=== PATIENT | male | born 1985 | race Caucasian/White ===

== ENCOUNTER 2019-10-29 11:01 | Emergency (ER) | payer OTHER ==
[~2019-10-29] VITALS: Ht 190.5 cm; Wt 72.6 kg
[2019-10-29 11:12] VITALS: BP 176/113
[2019-10-29] MEDS ORDERED: ALLOPURINOL 10100 M3 PO (11:18)
[2019-10-29] MEDS ORDERED: MEDROLDOSEPACK PO (11:18)
[2019-10-29] MEDS ORDERED: MITIGARE0.6 MG PO (11:18)
== END 2019-10-29 11:34 | disposition home or self-care (01) ==
LOC: M.ERS 11:01
DX: M10.062 Idiopathic gout, left knee (principal); Z76.0 Encounter for issue of repeat prescription; M25.422 Effusion, left elbow; M25.462 Effusion, left knee

== ENCOUNTER 2019-11-16 07:26 | Inpatient (IN) | payer OTHER ==
[~2019-11-16] VITALS: Ht 188 cm; Wt 86.2 kg
[~2019-11-16 07:26] MED LIST: ALLOPURINOL 10100 M3 PO; MEDROLDOSEPACK PO; MITIGARE0.6 MG PO
[2019-11-16 07:28] VITALS: BP 202/114
[2019-11-16 07:57] LABS: URINE BLOOD 3+ (Negative); URINE CLARITY CLEAR; URINE COLOR DARK YELLOW; URINE GLUCOSE-RANDOM NEGATIVE (Negative); URINE KETONES 1+ (Negative); URINE LEUKOCYTES-REFLEX NEGATIVE (Negative); URINE PROTEIN 2+ (Negative); URINE SPECIFIC GRAVITY 1.025 (1.005-1.030)
[2019-11-16 08:01] LABS: ICTOTEST (BILI CONFIRMATORY) Positive (Negative); URINE BILIRUBIN 2+ (Negative); URINE NITRITE-REFLEX POSITIVE (Negative)
[2019-11-16 08:04] LABS: AMP/METHAMP Negative (Negative); BARBITURATES Negative (Negative); BENZODIAZEPINES Negative (Negative); COCAINE Negative (Negative); METHADONE Negative (Negative); OPIATES Negative (Negative); PCP Negative (Negative); THC Negative (Negative)
[2019-11-16 08:06] LABS: SQUAMOUS 0-3 Few /LPF (0-3); URINE WBC-REFLEX 0-5 Rare /HPF (0-5)
[2019-11-16 08:07] LABS: BACTERIA-REFLEX >30 Many /HPF (None Seen); CASTS None Seen /LPF (None Seen); CRYSTALS None Seen /LPF (None Seen); MUCUS 0-3 Light strn/LPF (None Seen); URINE RBC 3-10 Few /HPF (0-2)
[2019-11-16 08:32] LABS: ABSOLUTE BASOPHILS 0.1 thou/uL (0.0-0.2); ABSOLUTE NEUTROPHILS 8.2 thou/uL (1.6-8.1); BASOPHILS 0.8 %; HEMATOCRIT 36.7 % (42.0-52.0); HEMOGLOBIN 13.5 gm/dL (14.0-18.0); LYMPHOCYTES 9.5 %; MCH 36.2 pg (26.0-34.0); MCHC 36.7 g/dL (28.0-37.0); MCV 98.5 fL (80.0-100.0); MONOCYTES 9.4 %; MPV 7.7 fl. (7.2-11.1); NUCLEATED RBCS 0 /100WBC; PLATELET COUNT* 146 thou/uL (150-400); POLYS 80.3 %; RBC 3.72 mil/uL (4.50-6.00); RDW-CV 15.8 % (10.5-14.5); WBC 10.2 thou/uL (4.0-11.0)
[2019-11-16 08:39] LABS: CREATININE 0.7 mg/dL (0.6-1.3)
[2019-11-16 08:44] LABS: ALBUMIN 2.4 g/dL (3.4-5.0); TOTAL BILIRUBIN 1.9 mg/dL (<0.1-1.0); TOTAL PROTEIN 6.6 g/dL (6.4-8.2)
[2019-11-16 10:19] VITALS: BP 181/106
[2019-11-16 11:00] VITALS: BP 160/102
[2019-11-16] MEDS ORDERED: NORVASC 2.5 MG2.5 M1 PO (11:32)
--- NOTE | 2019-11-16 14:11 | NUR ---
PT ADMITTED TO ROOM 225 VIA CART FROM ED AT APPROX 1027, REPORT RECEIVED FROM KORTNEY DIEHL. PT STATES HE HAS BEEN LIVING IN HIS VEHICLE FOR 2 WEEKS AND HAS NOT TAKEN ANY MEDS DURING THIS TIME. PT ORIENTED TO ROOM AND CALL LIGHT, ADMISSION ASSESSMENT AND HX COMPLETED CHARTED. SEPSIS SCREENING COMPLETED, NEGATIVE. HOME MEDS RECONCILED. PT ADMITTED W/ HYPOKALEMIA AND GOUT, SECOND BAG OF IV K+ CURRENTLY INFUSING. EDEMA NOTED TO BILAT ELBOWS, BILAT KNEES AND BILAT FEET. DR KYLE HERE TO SEE PT, ORDERS RECEIVED FOR MULTIPLE XRAYS AND MEDS. PT A&OX4, C/O PAIN TO RT LEG/HIP, TREATED W/ PRN OXYCODONE W/ PARTIAL RELIEF. TRACING ST ON THE DOCUMENT CONTROL SUPERVISOR, RATE IN THE LOW 100'S, ON RA, SAT UPPER 90'S. ORTHO CONSULT IN PLACE. MEDS PER SEP, HOURLY ROUNDING OBSERVED, WILL CONTINUE POC.
--- NOTE | 2019-11-16 14:23 | EKG ---
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1985 Requested By: Yahir Jiménez Order Number: [id number] MD: Wallace Huynh Measurements Intervals [place] Rate: 116 P: 33 FL: 137 QRS: -6 QRSD: 99 T: 17 QT: 366 QTc: 509 Interpretive Statements Sinus tachycardia LVH with secondary repolarization abnormality Prolonged QT interval No previous ECG available for comparison Electronically Signed On 11-16-2019 14:21:22 CDT by Wallace Huynh [email or web address] <ELECTRONICALLY SIGNED> By: Wallace Huynh MD, [facility] 11/16/19 1421 0749 0749 Wallace Huynh MD, [facility] /EPI
--- NOTE | 2019-11-16 16:16 | 2DMMODE ---
[place] [address] 2 D/M-MODE ECHOCARDIOGRAM Name: KACY RANGEL Room: [address] IN [facility]#: [id number] Admission: 11/16/19 Attend Phys: Fareed Harry, Discharge: Date of : 81 Date of Service: 11/16/19 1614 Report #: [id number] THIS REPORT FOR: cc: FAM - No family physician/PCP FAM - No family physician/PCP Salvador Rincon MD [facility] ~ APPROVED REPORT Study performed: 11/16/2019 13:54:41 EXAM: Comprehensive 2D, Doppler, and color-flow Echocardiogram Patient Location: In-Patient Room #: [facility] Status: routine BSA: 2.10 HR: 110 bpm BP: 160/102 mmHg Rhythm: NSR Other Information Study Quality: Good Indications edema 2D Dimensions IVSd: 12.28 (7-11mm) LVOT Diam: 22.93 (18-24mm) LVDd: 50.99 mm PWd: 11.11 (7-11mm) Ascending Ao: 32.43 (22-36mm) LVDs: 31.58 (25-40mm) Aortic Root: 35.42 mm Volumes Left Atrial Volume (Systole) LA ESV Index: 23.80 mL/m2 Aortic Valve AoV Peak Gabe.: 1.47 m/s AO Peak Gr.: 8.68 mmHg LVOT Max P.82 mmHg AO Mean Gr.: 4.91 mmHg LVOT Mean P.35 mmHg LVOT Max V: 1.10 m/s AO V2 VTI: 21.74 cm LVOT Mean V: 0.70 m/s ITZEL (VTI): 3.62 cm2 LVOT V1 VTI: 19.07 [place] [address] 2 D/M-MODE ECHOCARDIOGRAM Name: KACY RANGEL Room: [address] IN [facility]#: [id number] Admission: 11/16/19 Attend Phys: Fareed Harry, Discharge: Date of : 81 Date of Service: 11/16/19 1614 Report #: [id number] Mitral Valve E/A Ratio: 0.81 MV Decel. Time: 192.89 ms MV E Max Gabe.: 0.74 m/s MV PHT: 55.94 ms MVA (PHT): 3.93 cm2 TDI E/Lateral E': 5.69 Lateral E' Gabe.: 0.13 m/s Pulmonary Valve PV Peak Gabe.: 1.27 m/s PV Peak Gr.: 6.43 mmHg Left Ventricle The left ventricle is normal size. There is normal LV segmental wall motion. There is normal left ventricular wall thickness. Left ventricular systolic function is normal. LVEF is 65-70%. The left ventricular diastolic function is normal. Right Ventricle The right ventricle is normal size. The right ventricular systolic function is normal. Atria The left atrium size is normal. The right atrium size is normal. Aortic Valve The aortic valve is normal in structure. No aortic regurgitation is present. There is no aortic valvular stenosis. Mitral Valve The mitral valve is normal in structure. There is no mitral valve regurgitation noted. No evidence of mitral valve stenosis. Tricuspid Valve The tricuspid valve is normal in structure. Unable to assess PA pressure. Trace tricuspid regurgitation. Pulmonic Valve The pulmonary valve is normal in structure. Mild pulmonic regurgitation. Great Vessels The aortic root is normal in size. IVC [place] [address] 2 D/M-MODE ECHOCARDIOGRAM Name: KACY RANGEL Room: [address] IN [facility]#: [id number] Admission: 11/16/19 Attend Phys: Fareed Harry, Discharge: Date of : 81 Date of Service: 11/16/19 1614 Report #: [id number] collapses >50% with inspiration. Pericardium There is no pericardial effusion. <Conclusion> The left ventricle is normal size. There is normal left ventricular wall thickness. Left ventricular systolic function is normal. LVEF is 65-70%. The left ventricular diastolic function is normal. Mild pulmonic regurgitation. IVC is normal in size and collapses >50% with inspiration. <ELECTRONICALLY SIGNED> By: Salvador Rincon MD, FACC 11/16/19 1614 1614 161 Salvador Rincon MD, FACC /INF
[2019-11-16 18:00] VITALS: BP 174/103
--- NOTE | 2019-11-16 19:03 | NUR ---
NO ACUTE CHANGES THROUGHOUT SHIFT. PT CONTINUES TO SAT UPPER 90'S ON RA AND TRACE ST ON THE PAPER SALES REPRESENTATIVE. PT SAW ORTHO FOR THE BURSA'S ON HIS ELBOWS AND FLUID ACCUMULATION IN KNEES, FLUID WAS ASPERATED BY DR. ROBLES FROM L ELBOW AND BILAT KNEES. PT DC'D BOTH IV'S ON ACCIDENT IN THE SHOWER TODAY, 2 NEW IVS PLACED IN L ARM AND L HAND. MEDS PER MAR, HOURLY ROUDNING OBSERVED, WILL CONTINUE POC.
[2019-11-16 20:00] VITALS: BP 170/97
[2019-11-16 22:34] LABS: BF LYMPHOCYTES 2 %; BF POLYS 98 %
[2019-11-16 22:35] LABS: BF RBC 47125 /mm3; CLARITY TURBID; SOURCE L.ELBOW; TOTAL CELL COUNT 22196 /mm3; TOTAL VOLUME 6 ml
[2019-11-17] VITALS (10 sets, daily range): BP systolic 156–190; BP diastolic 95–118
[2019-11-17 04:45] LABS: ABSOLUTE LYMPHOCYTES 1.6 thou/uL (0.8-5.3); ABSOLUTE NEUTROPHILS 5.2 thou/uL (1.6-8.1); BASOPHILS 0.4 %; EOSINOPHILS 0.2 %; HEMATOCRIT 32.3 % (42.0-52.0); HEMOGLOBIN 11.8 gm/dL (14.0-18.0); LYMPHOCYTES 20.1 %; MCH 36.2 pg (26.0-34.0); MCHC 36.5 g/dL (28.0-37.0); MCV 99.2 fL (80.0-100.0); MPV 8.8 fl. (7.2-11.1); NUCLEATED RBCS 0 /100WBC; PLATELET COUNT* 119 thou/uL (150-400); POLYS 66.3 %; RBC 3.26 mil/uL (4.50-6.00); RDW-CV 15.5 % (10.5-14.5); WBC 7.9 thou/uL (4.0-11.0)
[2019-11-17 05:05] LABS: CALCIUM 8.2 mg/dL (8.5-10.1); CREATININE 0.7 mg/dL (0.6-1.3); POTASSIUM 3.1 mmol/L (3.5-5.1)
--- NOTE | 2019-11-17 07:34 | NUR ---
Shift uneventful. Pt is aox4, running s-tach on telemetry, respirations are even and unlabored on room air. Pt is medically stable at this time.
--- NOTE | 2019-11-17 11:42 | NUR ---
ASSUMED PT CARE AT 0730, PT SITTING UP IN BED, TRACING SR/ST ON THE CENTRIFUGAL STATION OPERATOR, SATTING 96% ON RA AND C/O PAIN IN BILAT ELBOWS AND KNEES, PRN OXYCODONE GIVEN W/ PARTIAL RELIEF. PT GOAL IS TO INCREASE ACTIVITY AND DECREASE PAIN. POTASSIUM IS CONTINUING TO BE REPLACED PER E'LYTE PROTOCOL. AM ASSESSMENT CHARTED, MEDS PER SEP, HOURLY ROUNDING OBSERVED, WILL CONTINUE POC.
[2019-11-17 13:08] LABS: ANTI-DNA SCREEN 2 IU/mL (0-9); ANTI-RNP <0.2 AI (0.0-0.9)
--- NOTE | 2019-11-17 14:23 | NUR ---
CM attempted to call Pt's room x3, no answer. Pt's cell phone number listed is disconnected. Per chart review, Pt is homeless and has been living in his car. ETOH hx. [facility] to eval. Pt will need to be in the hospital a few more days. CM to continue to try and reach Pt.
--- NOTE | 2019-11-17 17:40 | NUR ---
NO ACUTE CHANGES THROUGHOUT SHIFT, PT CONTINUES TO SAT MID TO UPPER 90'S ON RA, TRACE SR/ST ON THE CHILDREN'S PROGRAM COORDINATOR AND CONTINUED TO C/O PAIN TO JOINTS THROUGHOUT SHIFT. PRN PAIN MEDS PER MAR GIVEN W/ PARTIAL RELIEF. THIRD BAG OF POTASSIUM IS CURRENTLY RUNNING, PER [employer]A PROTOCOL AND SECOND BANANA BAG JUST HUNG WELL, PT IS TO HAVE 1 MORE BAG BEFORE BEING SWITCHED TO NS, PER DR. KYLE. MEDS PER MAR, HOURLY ROUNDING OBSERVED, WILL CONTINUE POC.
[2019-11-18 04:05] VITALS: BP 155/103
[2019-11-18 05:59] VITALS: BP 166/102
--- NOTE | 2019-11-18 07:21 | NUR ---
Pt persistently hypertensive throughout shift. At 2300 pt's bp was 170/109 10mg hydralazine IVP was administered with minimal resolution. On reassessment bp was 161/95. At 0400 pt's bp was 155/103 10mg hydralazine IVP was administered with no improvement. On reassessment pt's bp was higher at 166/102. Dr. Harry was paged. Per physician, clonidine patch was increased from 0.2mg to 0.3mg. Pt is aox4, running s-tach on telemetry, respirations are even and unlabored on room air. Pt is medically stable at this time.
[2019-11-18 08:00] VITALS: BP 154/104
[2019-11-18 10:57] LABS: ALBUMIN 2.1 g/dL (3.4-5.0); CALCIUM 8.8 mg/dL (8.5-10.1); CREATININE 0.7 mg/dL (0.6-1.3); TOTAL BILIRUBIN 0.6 mg/dL (<0.1-1.0)
[2019-11-18 10:59] LABS: POTASSIUM 2.9 mmol/L (3.5-5.1)
[2019-11-18 12:00] VITALS: BP 184/110
[2019-11-18 16:00] VITALS: BP 187/115
[2019-11-18 17:47] LABS: SOURCE SYNOVIAL
--- NOTE | 2019-11-18 18:11 | NUR ---
ASSESSMENT COMPLETED DOCUMENTED THIS MORNING. PATIENT RESTING IN BED AND C/O JOINT PAIN, "ESPECIALLY MY RIGHT ELBOW." 5/10, OXYCODONE 1 TAB PO GIVEN AT 0900, 1 ADDITIONAL TAB GIVEN AT 1306 FOR C/O PAIN AT 9/10 IN RIGHT ELBOW. COLD PACK GIVEN AND PLACED ON ELBOW WITH SOME RELIEF NOTED. DR. KYLE IN TO SEE PATIENT, ORDERS NOTED, SOLUMEDROL 125MG IVP GIVEN X1 TODAY.....K+2.9...ELECTROLYE PROTOCOL INPLACE, 20MEQ K+ GIVEN IVPB X2 AND K+ RECHECKED AT 1730. BP ELEVATED,154/104, 184/110, 187/115. COZAAR INCREASED, CLONIDINE INCREASED AND HYDRALAZINE 10MG IVP GIVEN AT 1800. PATIENT DENIES ANY DIZZINESS, HEADACHE OR ISSUES.
[2019-11-18 20:00] VITALS: BP 188/117
[2019-11-19 00:11] VITALS: BP 166/107
[2019-11-19 04:36] VITALS: BP 177/115
[2019-11-19 05:30] LABS: ABSOLUTE LYMPHOCYTES 1.7 thou/uL (0.8-5.3); ABSOLUTE MONOCYTES 0.9 thou/uL (0.0-1.2); BASOPHILS 0.1 %; HEMATOCRIT 33.8 % (42.0-52.0); HEMOGLOBIN 11.9 gm/dL (14.0-18.0); MCH 35.4 pg (26.0-34.0); MCHC 35.2 g/dL (28.0-37.0); MCV 100.7 fL (80.0-100.0); MONOCYTES 12.1 %; MPV 8.1 fl. (7.2-11.1); NUCLEATED RBCS 0 /100WBC; POLYS 65.8 %; RBC 3.35 mil/uL (4.50-6.00); RDW-CV 15.3 % (10.5-14.5); WBC 7.6 thou/uL (4.0-11.0)
[2019-11-19 05:38] LABS: PLATELET COUNT* 198 thou/uL (150-400)
[2019-11-19 05:49] LABS: CALCIUM 8.4 mg/dL (8.5-10.1); CREATININE 0.6 mg/dL (0.6-1.3); POTASSIUM 3.2 mmol/L (3.5-5.1)
--- NOTE | 2019-11-19 07:05 | NUR ---
CHANGE OF SHIFT BEDSIDE REPORT GIVEN PATIENT SEEN AT BEDSIDE, IN BED ASLEEP ASSUMED PATIENT CARE
[2019-11-19 08:00] VITALS: BP 190/126
[2019-11-19 14:00] VITALS: BP 172/119
[2019-11-19 16:00] VITALS: BP 193/128
[2019-11-19 20:00] VITALS: BP 181/125
[2019-11-20] VITALS: BP 188/122
[2019-11-20 04:00] VITALS: BP 185/121
--- NOTE | 2019-11-20 07:15 | NUR ---
CHANGE OF SHIFT REPORT GIVEN PATIENT SEEN AT BEDSIDE IN BED ASLEEP ASSUMED PATIENT CARE
[2019-11-20 08:00] VITALS: BP 193/125
[2019-11-20] MEDS ORDERED: CLONIDINE HCL0.2 M2 PO (12:51)
[2019-11-20] MEDS ORDERED: COZAAR 25 MG TA25 M1 PO (12:53)
[2019-11-20 12:55] VITALS: BP 193/125
[2019-11-20] MEDS ORDERED: ALLOPURINOL 10100 M3 PO (13:00)
[2019-11-20] MEDS ORDERED: MITIGARE0.6 MG PO (13:02)
[2019-11-20] MEDS ORDERED: CEFADROXIL 500500 M1 PO (13:04)
[2019-11-20] MEDS ORDERED: CEFUROXIME500 MG PO (14:21)
--- NOTE | 2019-11-20 14:43 | NUR ---
PATIENT DISCHARGED TO HOME ALL DISCHARGE INSTRUCTIONS GIVEN, ACKNOWLEDGED, SIGNED COPIES GIVEN IV AND HEART MONITOR REMOVED AND PERSONAL BELONGINGS RETURNED PATIENT ASSISTED OUT TO [facility] VIA GOOD CONDITION
== END 2019-11-20 14:38 | disposition home or self-care (01) | DRG 554 ==
LOC: M.ERS 07:26 → M.2W 08:57 → M.TBA-ER 08:57 → M.2W 10:28
PROVIDERS: Emergency Medicine Emergency Medical Services; Orthopaedic Surgery; ADMIT Internal Medicine
PROC: 0SJC3ZZ Inspection of Right Knee Joint, Percutaneous Approach (ICD-10-PCS; principal; 2019-11-16)
PROC: 0SJD3ZZ Inspection of Left Knee Joint, Percutaneous Approach (ICD-10-PCS; principal; 2019-11-16)
PROC: 0RJL3ZZ Inspection of Right Elbow Joint, Percutaneous Approach (ICD-10-PCS; principal; 2019-11-16)
PROC: 0RJM3ZZ Inspection of Left Elbow Joint, Percutaneous Approach (ICD-10-PCS; principal; 2019-11-16)
DX: M10.9 Gout, unspecified (principal); N39.0 Urinary tract infection, site not specified; M13.0 Polyarthritis, unspecified; E86.0 Dehydration; I16.0 Hypertensive urgency; I10 Essential (primary) hypertension; E87.6 Hypokalemia; F17.210 Nicotine dependence, cigarettes, uncomplicated; M25.50 Pain in unspecified joint; F10.20 Alcohol dependence, uncomplicated; Y90.9 Presence of alcohol in blood, level not specified; B96.1 Klebsiella pneumoniae [K. pneumoniae] as the cause of diseases classified elsewhere; Z91.14 Patient's other noncompliance with medication regimen; Z79.899 Other long term (current) drug therapy; Z88.5 Allergy status to narcotic agent

== ENCOUNTER 2020-02-28 22:08 | Emergency (ER) | payer OTHER ==
[~2020-02-28] VITALS: Ht 188 cm; Wt 80.3 kg
[~2020-02-28 22:08] MED LIST changes: +CEFADROXIL 500500 M1 PO; +CEFUROXIME500 MG PO; +CLONIDINE HCL0.2 M2 PO; +COZAAR 25 MG TA25 M1 PO; +NORVASC 2.5 MG2.5 M1 PO
[2020-02-29] MEDS ORDERED: KEFLEX500 M1 PO (00:15)
[2020-02-29 00:28] VITALS: BP 138/79
== END 2020-02-29 00:28 | disposition home or self-care (01) ==
LOC: M.ERS 22:08
DX: S51.811A Laceration without foreign body of right forearm, initial encounter (principal); I10 Essential (primary) hypertension; M10.9 Gout, unspecified; F17.210 Nicotine dependence, cigarettes, uncomplicated; Z88.6 Allergy status to analgesic agent; W26.0XXA Contact with knife, initial encounter; Y93.89 Activity, other specified; Y92.89 Other specified places as the place of occurrence of the external cause; Y99.8 Other external cause status

== ENCOUNTER 2020-10-01 16:13 | Inpatient (IN) | payer OTHER ==
[~2020-10-01] VITALS: Ht 188 cm; Wt 81.9 kg
[~2020-10-01 16:13] MED LIST changes: +KEFLEX500 M1 PO
[2020-10-01 16:48] VITALS: BP 150/115
[2020-10-01 17:11] LABS: HEMATOCRIT 50.1 % (42.0-52.0); HEMOGLOBIN 17.5 gm/dL (14.0-18.0); MCH 32.9 pg (26.0-34.0); MCHC 34.9 g/dL (28.0-37.0); MCV 94.4 fL (80.0-100.0); MPV 8.3 fl. (7.2-11.1); NUCLEATED RBCS 0 /100WBC; PLATELET COUNT* 304 thou/uL (150-400); RBC 5.31 mil/uL (4.50-6.00); RDW-CV 13.6 % (10.5-14.5); WBC 26.7 thou/uL (4.0-11.0)
[2020-10-01 17:20] LABS: CALCIUM 10.6 mg/dL (8.5-10.1); CREATININE 2.5 mg/dL (0.6-1.3); POTASSIUM 3.4 mmol/L (3.5-5.1)
[2020-10-01 17:22] LABS: APTT 33.4 Seconds (25.0-31.3); INR 1.1; PROTIME 11.6 Seconds (9.20-11.50)
[2020-10-01 17:24] LABS: ALBUMIN 4.2 g/dL (3.4-5.0); TOTAL BILIRUBIN 2.6 mg/dL (<0.1-1.0); TOTAL PROTEIN 9.8 g/dL (6.4-8.2)
[2020-10-01 17:41] LABS: ABSOLUTE LYMPHOCYTES 1.3 thou/uL (0.8-5.3); ABSOLUTE MONOCYTES 1.1 thou/uL (0.0-1.2); ABSOLUTE NEUTROPHILS 24.3 thou/uL (1.6-8.1); PLATELET ESTIMATE ADEQUATE
[2020-10-01 20:59] VITALS: BP 146/96
[2020-10-02 04:00] VITALS: BP 121/93
[2020-10-02 05:21] LABS: HEMATOCRIT 39.3 % (42.0-52.0); MCH 32.7 pg (26.0-34.0); MCHC 33.6 g/dL (28.0-37.0); MCV 97.5 fL (80.0-100.0); MPV 8.6 fl. (7.2-11.1); RBC 4.03 mil/uL (4.50-6.00); RDW-CV 13.3 % (10.5-14.5); WBC 15.1 thou/uL (4.0-11.0)
[2020-10-02 05:25] LABS: HEMOGLOBIN 13.2 gm/dL (14.0-18.0)
[2020-10-02 05:41] LABS: ALBUMIN 2.5 g/dL (3.4-5.0); MAGNESIUM 1.7 mg/dL (1.8-2.4); POTASSIUM 3.3 mmol/L (3.5-5.1); TOTAL BILIRUBIN 1.4 mg/dL (<0.1-1.0); TOTAL PROTEIN 6.7 g/dL (6.4-8.2)
[2020-10-02 05:43] LABS: CALCIUM 7.9 mg/dL (8.5-10.1); CREATININE 1.3 mg/dL (0.6-1.3)
[2020-10-02 08:21] VITALS: BP 136/97
--- NOTE | 2020-10-02 10:10 | EKG ---
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1985 Requested By: Pritesh Taylor Order Number: [id number] MD: Ricardo Kong Measurements Intervals [place] Rate: 122 P: 47 TN: 153 QRS: 32 QRSD: 91 T: 58 QT: 321 QTc: 458 Interpretive Statements Sinus tachycardia Probable left atrial enlargement Probable LVH with secondary repol abnrm Compared to ECG 11/16/2019 07:49:21 Prolonged QT interval no longer present Electronically Signed On 10-02-2020 10:10:01 CDT by Ricardo Kong [email or web address] <ELECTRONICALLY SIGNED> By: Ricardo Kong MD, [facility] 10/02/20 1010 1656 1656 Ricardo Kong MD, [facility] /EPI
--- NOTE | 2020-10-02 11:17 | OP ---
[address] [address] OPERATIVE REPORT Name: KACY RANGEL Room: [address] IN M.R.#: [id number] Admission: 10/01/20 Attend Phys: Megan Alarcon MD Discharge: Date of : 81 Report #: [id number] THIS REPORT FOR: cc: FAM - No family physician/PCP FAM - No family physician/PCP ~ Ela Holder DO DATE OF SERVICE: 10/01/2020 PREPROCEDURE DIAGNOSIS: Perforated viscus. POSTPROCEDURE DIAGNOSIS: Perforated viscus. FINDINGS: Moderate diffuse purulent peritonitis. There was no abscess seen. There was no leakage of any bile, small bowel or colonic contents. Appendix appeared normal. No perforation was identified. SURGEON: Ela Holder DO COSURGEON: Cristina Dillard, PGY3. PROCEDURE PERFORMED: Diagnostic laparoscopy, laparoscopic washout and drain placement. ANESTHESIA: General endotracheal, local and TAP blocks. ESTIMATED BLOOD LOSS: 10 mL. DRAINS: Bilateral 15-Panamanian WILY drains. SPECIMENS: None. COMPLICATIONS: None. CONDITION: Improved. DISPOSITION: PACU to the floor. HISTORY OF PRESENT ILLNESS: The patient is a 35-year-old gentleman who presented to the ER with complaint of about 3 days of abdominal pain, nausea and vomiting as well as subjective fevers. His vomiting, worsened today and appeared to be very dark and so he decided to present to the ER, he was found to be septic in the ER with elevated white count, tachycardia, and diffuse abdominal pain. CT scan without contrast showed free air throughout the abdomen, which was consistent with possible perforated viscus, but without any localizing signs. The patient was then consented for diagnostic laparoscopy, [address] [address] OPERATIVE REPORT Name: KACY RANGEL Room: [address] IN [facility].#: [id number] Admission: 10/01/20 Attend Phys: Megan Alarcon MD Discharge: Date of : 81 Report #: [id number] possible laparotomy, possible bowel resection, possible ostomy and all other indicated procedures. We discussed with the patient since we did not have a target for perforation that consent would be vague. All the patient's questions and concerns were answered and he agreed to proceed. DESCRIPTION OF PROCEDURE: The patient was brought to the operating room. He was laid supine on the operating room table. SCDs were placed on bilateral lower extremities. The patient was already on Zosyn in the perioperative period. General endotracheal anesthesia was induced by Anesthesia without difficulty. Samuels catheter was placed utilizing sterile technique. Of note, urine was very dark. Abdomen was prepped and draped in standard sterile fashion. Timeout was performed to verify patient and procedure. A 10 mL of 0.5% Marcaine were injected in the supraumbilical area. Incision was made with 11 blade. Cautery was used for hemostasis. S retractors were used to visualize fascia. Fascia was grasped and elevated between 2 Kochers. Fascia was incised using cautery. Peritoneum was bluntly entered using a Misty clamp. Finger was introduced into the abdomen to assure that there were no scott-incisional adhesions, none were identified. There were some purulence. It did bubble through the incision. Two stitches of 0 Vicryl placed on the fascia. Jyothi trocar was introduced and secured with 0 Vicryl stitches. Abdomen was insufflated. Camera was introduced and a brief anterior abdominal exploration was undertaken with diffuse purulent peritonitis. A 5 mm trocar was introduced in the suprapubic area under direct visualization and the free flowing purulence was suctioned away across the entirety of the lower pelvis. There was fibrinous exudate, but no well formed abscesses were identified. 2 additional 5mm trocars were introduced, one in the LLQ and one in the RLQ. We initially began our exploration of the right lower quadrant. The cecum was identified and elevated. Appendix was then also identified. It appeared to be perfectly normal. There was no sign of any infection or inflammation around the appendix. The terminal ileum was then identified. There were some fibrinous purulent exudate over the terminal ileum, but no sign of any perforation. Small bowel was then gently run from the terminal ileum to the ligament of Treitz. There were multiple areas of fibrinous exudate identified over the small bowel, but there was never any sign of perforation or any succuss. We then turned our attention to the pelvis, again there was a fibrinous exudate and purulence in the pelvis, which was all suctioned away. The sigmoid colon was gently elevated out of the pelvis and was closely inspected. There did not appear to be any sign of any diverticula or diverticulitis. There was no sign of any perforation in the sigmoid colon. Sigmoid colon was followed all the way down to the rectum. This entire area appeared to be very soft and without any sign of disease. Descending colon was also very soft. There was no sign of any diverticula. Transverse colon was then also inspected and appeared to be intact. Liver was elevated and the stomach was identified. NG tube could be palpated within the stomach. Stomach was completely decompressed. There was no sign of [place] [address] OPERATIVE REPORT Name: KACY RANGEL Room: [address] IN [facility]#: [id number] Admission: 10/01/20 Attend Phys: Megan Alarcon MD Discharge: Date of : 81 Report #: [id number] stomach. We then turned our attention to the right upper quadrant. The gallbladder was elevated and it was mildly distended, but otherwise appeared to be disease free. Duodenum was inspected. There was no sign of any perforation or leakage of bile in the right upper quadrant. Small bowel was again run carefully from the terminal ileum to the ligament of Treitz again with no further sign of any disease. It was suspected at this point that perhaps the patient has had a small perforation several days ago, which then became sealed. A vigorous washout was then completed utilizing 3 liters of normal saline. Two 15-Panamanian hubless WILY drains were then introduced through each 5 mm ports on the right and left side of the abdomen. These were both brought down into the pelvis. Trocars were then removed over the ports and finally our suprapubic port was removed. Abdomen was then completely desufflated. Jyothi trocar was removed and Kochers were then placed on the fascia of the supraumbilical port. Previously placed 0 Vicryl stitches were removed and a 0 Vicryl stitch was placed in [id number] fashion with excellent approximation of the fascia. An additional 10 mL of 0.5% Marcaine were injected in the fascia. This wound was closed in a layered fashion using deep and superficial stitches of 3-0 Vicryl in inverted interrupted fashion. All skin wounds were closed with 4-0 Monocryl. The two WILY drains were sutured into place using 2-0 nylon stitches. Wounds were then cleansed and covered with Dermabond. Drains were covered with a 4 x 4 and a Tegaderm. The patient was then left in the care of anesthesia for application of TAP'S blocks. <ELECTRONICALLY SIGNED> By: Ela Holder DO 10/02/20 1117 2321 [id number] Holder DO /nt
[2020-10-02 16:00] VITALS: BP 147/105
[2020-10-02 17:43] LABS: MAGNESIUM 2.5 mg/dL (1.8-2.4); POTASSIUM 3.6 mmol/L (3.5-5.1)
[2020-10-02 20:15] VITALS: BP 155/113
[2020-10-02 23:58] VITALS: BP 160/104
[2020-10-03 04:30] LABS: ABSOLUTE EOSINOPHILS 0.1 thou/uL (0.0-0.7); ABSOLUTE MONOCYTES 0.4 thou/uL (0.0-1.2); ABSOLUTE NEUTROPHILS 5.9 thou/uL (1.6-8.1); BASOPHILS 0.3 %; EOSINOPHILS 1.6 %; HEMATOCRIT 39.1 % (42.0-52.0); HEMOGLOBIN 13.2 gm/dL (14.0-18.0); MCH 33.3 pg (26.0-34.0); MCHC 33.8 g/dL (28.0-37.0); MCV 98.5 fL (80.0-100.0); MONOCYTES 5.2 %; MPV 8.6 fl. (7.2-11.1); NUCLEATED RBCS 0 /100WBC; PLATELET COUNT* 168 thou/uL (150-400); POLYS 69.9 %; RBC 3.97 mil/uL (4.50-6.00); RDW-CV 13.3 % (10.5-14.5); WBC 8.5 thou/uL (4.0-11.0)
[2020-10-03 04:37] VITALS: BP 160/108
[2020-10-03 04:42] LABS: URINE BLOOD 1+ (Negative); URINE CLARITY CLEAR; URINE COLOR YELLOW; URINE GLUCOSE-RANDOM NEGATIVE (Negative); URINE KETONES 1+ (Negative); URINE LEUKOCYTES-REFLEX NEGATIVE (Negative); URINE NITRITE-REFLEX NEGATIVE (Negative); URINE PROTEIN NEGATIVE (Negative); URINE SPECIFIC GRAVITY 1.025 (1.005-1.030); URINE UROBILINOGEN 0.2 E.U./dl (0.2-1.0)
[2020-10-03 04:43] LABS: ALBUMIN 2.6 g/dL (3.4-5.0); CALCIUM 8.4 mg/dL (8.5-10.1); CREATININE 0.8 mg/dL (0.6-1.3); POTASSIUM 3.3 mmol/L (3.5-5.1); TOTAL BILIRUBIN 0.9 mg/dL (<0.1-1.0); TOTAL PROTEIN 6.7 g/dL (6.4-8.2)
[2020-10-03 04:45] LABS: URINE BILIRUBIN 1+ (Negative)
[2020-10-03 05:04] LABS: BACTERIA-REFLEX >30 Many /HPF (None Seen); CRYSTALS None Seen /LPF (None Seen); HYALINE CASTS 0-3 Few /LPF (None Seen); MUCUS 4-6 Moderate strn/LPF (None Seen); SQUAMOUS 0-3 Few /LPF (0-3); TRANSITIONAL EPITHEL CELL 0-3 Few /LPF (None Seen); URINE WBC-REFLEX 6-15 Few /HPF (0-5); WBC CLUMPS Few (None Seen)
[2020-10-03 08:06] VITALS: BP 161/110
[2020-10-03 12:05] VITALS: BP 170/118
[2020-10-03 15:57] VITALS: BP 155/102
[2020-10-03 20:00] VITALS: BP 168/80; BP 173/115
[2020-10-04] VITALS (7 sets, daily range): BP systolic 137–160; BP diastolic 80–110
[2020-10-04 02:06] LABS: HEPATITIS B SURFACE AG Negative (Negative)
[2020-10-04 04:27] LABS: ABSOLUTE EOSINOPHILS 0.2 thou/uL (0.0-0.7); ABSOLUTE LYMPHOCYTES 1.8 thou/uL (0.8-5.3); ABSOLUTE MONOCYTES 0.9 thou/uL (0.0-1.2); ABSOLUTE NEUTROPHILS 4.9 thou/uL (1.6-8.1); BASOPHILS 0.5 %; EOSINOPHILS 2.4 %; HEMATOCRIT 40.4 % (42.0-52.0); HEMOGLOBIN 13.7 gm/dL (14.0-18.0); LYMPHOCYTES 22.5 %; MCH 32.8 pg (26.0-34.0); MCHC 33.9 g/dL (28.0-37.0); MCV 96.6 fL (80.0-100.0); MONOCYTES 11.8 %; MPV 8.1 fl. (7.2-11.1); NUCLEATED RBCS 0 /100WBC; PLATELET COUNT* 197 thou/uL (150-400); POLYS 62.8 %; RBC 4.19 mil/uL (4.50-6.00); RDW-CV 12.9 % (10.5-14.5); WBC 7.8 thou/uL (4.0-11.0)
[2020-10-04 04:52] LABS: ALBUMIN 2.6 g/dL (3.4-5.0); CALCIUM 8.8 mg/dL (8.5-10.1); CREATININE 0.6 mg/dL (0.6-1.3); POTASSIUM 3.4 mmol/L (3.5-5.1); TOTAL PROTEIN 6.8 g/dL (6.4-8.2)
[2020-10-05 05:41] LABS: HEMATOCRIT 42.3 % (42.0-52.0); HEMOGLOBIN 14.3 gm/dL (14.0-18.0); MCH 32.5 pg (26.0-34.0); MCHC 33.8 g/dL (28.0-37.0); MCV 96.2 fL (80.0-100.0); MPV 7.9 fl. (7.2-11.1); RBC 4.4 mil/uL (4.50-6.00); RDW-CV 13.5 % (10.5-14.5); WBC 7.1 thou/uL (4.0-11.0)
[2020-10-05 05:54] LABS: ALBUMIN 2.6 g/dL (3.4-5.0); CALCIUM 9.3 mg/dL (8.5-10.1); CREATININE 0.8 mg/dL (0.6-1.3); POTASSIUM 3.6 mmol/L (3.5-5.1); TOTAL BILIRUBIN 0.9 mg/dL (<0.1-1.0)
[2020-10-05 07:20] VITALS: BP 133/85
[2020-10-05 11:39] VITALS: BP 125/88
[2020-10-05 15:55] VITALS: BP 129/94
[2020-10-05 20:00] VITALS: BP 141/99
[2020-10-06 00:06] VITALS: BP 145/100
[2020-10-06 03:27] LABS: CREATININE 0.6 mg/dL (0.6-1.3); MAGNESIUM 1.5 mg/dL (1.8-2.4); PHOSPHORUS* 3.6 mg/dL (2.5-4.9); POTASSIUM 3.2 mmol/L (3.5-5.1)
[2020-10-06 03:53] VITALS: BP 124/91
[2020-10-06 03:54] LABS: HEMATOCRIT 41.7 % (42.0-52.0); MCH 32.3 pg (26.0-34.0); MCHC 33.5 g/dL (28.0-37.0); MCV 96.4 fL (80.0-100.0); RBC 4.33 mil/uL (4.50-6.00); RDW-CV 13.1 % (10.5-14.5); WBC 7.3 thou/uL (4.0-11.0)
[2020-10-06 03:56] LABS: HEMATOCRIT 41.2 % (42.0-52.0); HEMOGLOBIN 13.9 gm/dL (14.0-18.0); MCH 32.6 pg (26.0-34.0); MCHC 33.8 g/dL (28.0-37.0); MCV 96.5 fL (80.0-100.0); MPV 8.2 fl. (7.2-11.1); NUCLEATED RBCS 0 /100WBC; PLATELET COUNT* 254 thou/uL (150-400); RBC 4.27 mil/uL (4.50-6.00); RDW-CV 13.3 % (10.5-14.5); WBC 7.1 thou/uL (4.0-11.0)
[2020-10-06 04:59] LABS: ABSOLUTE EOSINOPHILS 0.2 thou/uL (0.0-0.7); ABSOLUTE LYMPHOCYTES 2.6 thou/uL (0.8-5.3); ABSOLUTE MONOCYTES 1.8 thou/uL (0.0-1.2); ABSOLUTE NEUTROPHILS 2.6 thou/uL (1.6-8.1); PLATELET ESTIMATE ADEQUATE
[2020-10-06 05:00] LABS: LARGE PLATELETS OCCASIONAL
[2020-10-06 08:00] VITALS: BP 126/96
[2020-10-06 11:44] VITALS: BP 126/77
[2020-10-06 16:47] VITALS: BP 146/98
[2020-10-06 20:00] VITALS: BP 141/90
[2020-10-07 00:36] VITALS: BP 143/100
[2020-10-07 04:00] VITALS: BP 135/91
[2020-10-07 05:33] LABS: CALCIUM 8.9 mg/dL (8.5-10.1); CREATININE 0.7 mg/dL (0.6-1.3); POTASSIUM 3.4 mmol/L (3.5-5.1)
[2020-10-07 05:41] LABS: HEMATOCRIT 40.3 % (42.0-52.0); HEMOGLOBIN 13.6 gm/dL (14.0-18.0); MCH 32.7 pg (26.0-34.0); MCHC 33.8 g/dL (28.0-37.0); MCV 96.9 fL (80.0-100.0); MPV 8.1 fl. (7.2-11.1); RBC 4.16 mil/uL (4.50-6.00); RDW-CV 12.9 % (10.5-14.5)
[2020-10-07 07:40] VITALS: BP 140/75
[2020-10-07 12:15] VITALS: BP 144/75
[2020-10-07 17:01] VITALS: BP 131/85
[2020-10-07 19:45] VITALS: BP 140/96
[2020-10-08 00:27] VITALS: BP 129/82
[2020-10-08 05:20] VITALS: BP 126/88
[2020-10-08 05:26] LABS: HEMATOCRIT 41.1 % (42.0-52.0); MCH 32.6 pg (26.0-34.0); MCV 96.1 fL (80.0-100.0); MPV 7.8 fl. (7.2-11.1); RBC 4.28 mil/uL (4.50-6.00)
[2020-10-08 05:42] LABS: ALBUMIN 2.7 g/dL (3.4-5.0); ALKALINE PHOSPHATASE 76 U/L (46-116); ANION GAP 8 mmol/L (7-16); BUN 6 mg/dL (7-18); CHLORIDE 101 mmol/L (98-107); CO2 30 mmol/L (21-32); CREATININE 0.8 mg/dL (0.6-1.3); GLUCOSE 98 mg/dL (70-99); POTASSIUM 3.9 mmol/L (3.5-5.1); SGOT 10 U/L (15-37); SGPT < 6 U/L (30-65); SODIUM 139 mmol/L (136-145); TOTAL BILIRUBIN 0.4 mg/dL (<0.1-1.0); TOTAL PROTEIN 6.8 g/dL (6.4-8.2)
[2020-10-08 08:00] VITALS: BP 129/90
[2020-10-08] MEDS ORDERED: AMOXIL 875 MG875 M2 PO ×3 (08:29→08:57)
[2020-10-08] MEDS ORDERED: MIRALAX17 GM PO ×4 (08:29→08:58)
[2020-10-08] MEDS ORDERED: TYLENOL325 MG PO ×4 (08:29→08:58)
[2020-10-08] MEDS ORDERED: ZOFRAN4 MG PO ×4 (08:29→08:58)
[2020-10-08] MEDS ORDERED: NORVASC5 MG PO ×4 (08:29→08:58)
[2020-10-08] MEDS ORDERED: AUGMENTIN 875-1 EACH PO (08:58)
[2020-10-08 11:13] VITALS: BP 129/90
== END 2020-10-08 11:56 | disposition home or self-care (01) | DRG 853 ==
LOC: M.ERS 16:13 → M.TBA-ER 17:27 → M.2W 10-02 00:44
PROVIDERS: Family Medicine; Internal Medicine; Surgery; ADMIT Internal Medicine; ATTEND Internal Medicine
PROC: 0DJ04ZZ Inspection of Upper Intestinal Tract, Percutaneous Endoscopic Approach (ICD-10-PCS; principal; 2020-10-01)
PROC: 0W9F40Z Drainage of Abdominal Wall with Drainage Device, Percutaneous Endoscopic Approach (ICD-10-PCS; principal; 2020-10-01)
DX: A41.9 Sepsis, unspecified organism (principal); K63.1 Perforation of intestine (nontraumatic); K65.9 Peritonitis, unspecified; K92.2 Gastrointestinal hemorrhage, unspecified; N17.9 Acute kidney failure, unspecified; E87.1 Hypo-osmolality and hyponatremia; K56.609 Unspecified intestinal obstruction, unspecified as to partial versus complete obstruction; M10.9 Gout, unspecified; I10 Essential (primary) hypertension; F17.210 Nicotine dependence, cigarettes, uncomplicated; F10.10 Alcohol abuse, uncomplicated; E87.6 Hypokalemia; Z20.822 Contact with and (suspected) exposure to COVID-19; E80.6 Other disorders of bilirubin metabolism; Z88.6 Allergy status to analgesic agent; Z79.899 Other long term (current) drug therapy